=== PATIENT | male | born 1955 | race African-American/Black ===

== ENCOUNTER 2019-02-24 11:33 | Inpatient (IN) | payer OTHER ==
[2019-02-24 15:09] VITALS: BMI 31.4
--- NOTE | 2019-02-24 17:31 | HP ---
COWS - Scale Resting Pulse: 0= IN 80 or Below Sweatin= No chills or Flushing Restless Observation: 0= Sits Still Pupil Size: 0= Normal to Room Light Bone or Joint Aches: 1= Mild Discomfort Runny Nose/ Eye Tearin= None GI Upset > 30mins: 1= Stomach Cramp Tremor Observation: 0= None Yawning Observation: 0= None Anxiety or Irritability: 0= None Goose Flesh Skin: 0=Smooth Skin COWS Score: 2 CIWA Score Nausea/Vomitin-No Nausea/No Vomiting Muscle Tremors: None Anxiety: 0-No Anxiety, at Ease Agitation: 0-Normal Activity Paroxysmal Sweats: No Perspiration Orientation: 2-Disoriented Date<2 days Tacttile Disturbances: 0-None Auditory Disturbances: 0-None Visual Disturbances: 0-None Headache: 0-None Present CIWA-Ar Total Score: 2 - Admission Criteria OASAS Guidelines: Admission for Medically Managed Detox: Requires at least one of the followin. CIWA greater than 12 2. Seizures within the past 24 hours 3. Delirium tremens within the past 24 hours 4. Hallucinations within the past 24 hours 5. Acute intervention needed for co occurring medical disorder 6. Acute intervention needed for co occurring psychiatric disorder 7. Severe withdrawal that cannot be handled at a lower level of care (continued vomiting, continued diarrhea, abnormal vital signs) requiring intravenous medication and/or fluids 8. Admission ROS [facility] Allergies/Adverse Reactions: Allergies Allergy/AdvReac Type Severity Reaction Status Date / Time No Known Allergies Allergy Verified 02/24/19 14:31 History of Present Illness: pt here requesting detox from etoh use , reports 2-3 beers every other day , reports " nothing happens " if not drinking , claims heroin use 4 bags/week , cocaine daily 40-60 $ /day since age 8 , latest use yesterday , referred by parole . tobacco : 6-7 cigs/day PMHx : multiple myeloma , anxiety , bipolar d/o , htn , asthma/ copd , sad , chronic knee pain . pshx : aortic aneurysm ( 2007 [facility] ) , pneumothorax Exam Limitations: Clinical Condition - Ebola screening Have you traveled outside of the country in the last 21 days: No Have you had contact with anyone from an Ebola affected area: No Do you have a fever: No - Review of Systems Constitutional: No Symptoms Reported EENT: reports: Other (glasses) Respiratory: reports: No Symptoms reported Cardiac: reports: No Symptoms Reported GI: reports: See HPI : reports: No Symptoms Reported Musculoskeletal: reports: Joint Pain (nuvia knees and back chronic pain) Integumentary: reports: No Symptoms Reported Neuro: reports: No Symptoms reported Endocrine: reports: No Symptoms Reported Psychiatric: reports: Orientated x3, Anxious Patient History - Smoking Cessation Smoking history: Current every day smoker Have you smoked in the past 12 months: Yes Initiated information on smoking cessation: No - Substances abused Alcohol Substance route: Oral Frequency: Daily Amount used: 3-4x16oz beer Age of first use: 8 Date of last use: 02/23/19 Heroin Substance route: Inhalation Frequency: 3-6 times per week Amount used: 1 bag Age of first use: 11 Date of last use: 02/20/19 Cocaine Substance route: Inhalation Frequency: Daily Amount used: 1 gram Age of first use: 8 Date of last use: 02/23/19 Admission Physical Exam S - Vital Signs Vital Signs: Vital Signs - 24 hr 02/24/19 14:23 Temperature 96.9 F L Pulse Rate 72 Respiratory 17 Rate Blood Pressure 113/66 - Physical General Appearance: Yes: Anxious HEENTM: Yes: EOMI, Hearing grossly Normal, Normocephalic, Normal Voice Respiratory: Yes: Chest Non-Tender, Lungs Clear, Normal Breath Sounds Neck: Yes: No masses,lesions,Nodules, Trachea in good position Cardiology: Yes: Regular Rhythm, Regular Rate, S1, S2 Abdominal: Yes: Non Tender, Soft, Protuberent Back: Yes: Normal Inspection Musculoskeletal: Yes: Gait Steady Extremities: Yes: Pedal Edema (nuvia le , non- pitting , + hyperpigmentation) Neurological: Yes: Alert, Motor Strength 5/5, Normal Mood/Affect Integumentary: Yes: Warm, Rash (bile le stasisi dermatitis , hyperpigmentation) - Diagnostic (1) Alcohol use Current Visit: Yes Status: Acute (2) Cocaine use disorder Current Visit: Yes Status: Acute (3) Nicotine dependence Current Visit: Yes Status: Chronic Qualifiers: Nicotine product type: cigarettes Breathalyzer - Breathalyzer Breathalyzer: 0 Urine Drug Screen - Test Device Lot number: [id number] Expiration date: 05/07/20 - Control Is test valid?: Yes - Results Drug screen NEGATIVE: No Urine drug screen results: THELMA-Cocaine Inpatient Rehab Admission - Rehab Decision to Admit Inpatient rehab admission?: Yes - Initial Determination Are CD services needed?: Yes Free of communicable disease: Yes Not in need of hospitalization: Yes - Rehab Admission Criteria Previous failed treatment: Yes Poor recovery environment: Yes Comorbidities: Yes Lacks judgement: Yes Patient is meeting Inpatient Rehab admission criteria:: Yes
[2019-02-24] MEDS ORDERED: ALBUTEROL SO4 8 GM HFA INHALER IH PRN (17:42)
[2019-02-24] MEDS ORDERED: DICLOFENAC SODIUM TP PRN (17:42)
[2019-02-24] MEDS ORDERED: PATIENT'S OWN MEDICATION (NON-FORMULARY) (Ipratropium/Albuterol Sulfate [Combivent Respima IH PRN (17:42)
[2019-02-24] MEDS ORDERED: ALBUTEROL SO4 0.083% IH SOL 2.5 MG/3 ML VIAL.NEB. NEB PRN (17:48)
[2019-02-24] MEDS ORDERED: MAGNESIUM CITRATE 300 ML BOTTLE PO PRN (17:49)
[2019-02-24] MEDS ORDERED: hydrOXYzine PAMOATE 25 MG CAPSULE (FP) PO PRN (17:49)
[2019-02-24] MEDS ORDERED: P-EPHED 60MG/TRIPROLIDI 2.5MG TABLET PO PRN (17:49)
[2019-02-24] MEDS ORDERED: ACETAMINOPHEN 325 MG TABLET (FP) PO PRN (17:49)
[2019-02-24] MEDS ORDERED: MAGNESIUM HYDROX 2400MG/30ML ORAL SUSPENSION 30 ML CUP PO PRN (17:49)
[2019-02-24] MEDS ORDERED: NICOTINE POLACRILEX 2 MG GUM BC PRN (17:49)
[2019-02-24] MEDS ORDERED: guaiFENesin 200 MG/10 ML 10 ML UNIT-DOSE CUPS PO PRN (17:49)
[2019-02-24] MEDS ORDERED: MAG HYDROX/AL HYDROX/SIMETH 30 ML UNIT-DOSE CUP PO PRN (17:49)
[2019-02-24] MEDS ORDERED: MENTHOL/PHENOL 1 EACH UD MM PRN (17:49)
--- NOTE | 2019-02-24 20:34 | PN ---
[facility] Progress Note Note: I was asked to document the fact that the biofuels production technician scanned the wrong barcode and placed the EKG dated 02/24/19 and in the wrong chart. Please disregard this EKG as it belongs to another patient. IT notified .
[2019-02-24] MEDS: THIAMINE HCL 100 MG TABLET (FP) PO SCH (21:26)
[2019-02-24] MEDS: AMITRIPTYLINE HCL 100 MG TABLET PO SCH (21:27)
[2019-02-24] MEDS: CARVEDILOL 12.5 MG TABLET (FP) PO SCH (21:27)
[2019-02-24] MEDS: ATORVASTATIN CA 10 MG TABLET (FP) PO SCH (21:28)
[2019-02-24] MEDS: AMMONIUM LACTATE 12% LOTION 225 GM BOTTLE TP SCH (21:28)
[2019-02-24] MEDS ORDERED: MELATONIN 5 MG TABLETS PO PRN (22:00)
[2019-02-24] MEDS ORDERED: AMMONIUM LACTATE 12% CREAM 140 GM TUBE TP SCH (22:00)
[2019-02-24] MEDS ORDERED: risperiDONE 2 MG TABLET PO SCH (22:00)
--- NOTE | 2019-02-25 06:58 | CONSULT ---
[facility] Psychiatric Consult - Data Date of interview: 02/25/19 Admission source: [place] Identifying data: Mr Johnson is a 63 years old single Black male, father of a 36 years old daughter, unemployed receiving SSI, domiciled living in a rented room seeking rehab treatment for alcohol, opioid and cocaine Substance Abuse History: Reports history of alcohol, heroin and cocaine use. Refer to addiction counselor's summary for further information Medical History: Significant for bronchial asthma/COPD, hypertension, multiple myeloma, chronic knee pain and history of surgery for aortic aneurysm in 2006. Smokes cigarettes Psychiatric History: Reports that his first psychiatric contact was in 2017, two years following his release from serving 30 years in [facility] for murder. Reports that he saw a psychiatrist at [facility] and he was started on psychotropic medication. Reports that he currently sees psychiatrist at the same outpatient program and he is prescribed Risperdal 2 mg/hs and Elavil 100 mg/hs. Denies previous psychiatric hospitalization or suicidal attempt. At present, denies experiencing psychotic, manic or depressive symptoms, S/H ideations. However, reports sleeping poorly Physical/Sexual Abuse/Trauma History: Denies history of emotional, physical or sexual abuse as well as DV relationship. No service Additional Comment: Reports history of 2 previous arrests including one felony conviction on charges of murder 2nd degree for which he served 30 years in [facility] from 1985 to 2014. Reports being on life parole Mental Status Exam - Mental Status Exam Alert and Oriented to: Time, Place, Person Cognitive Function: Fair Patient Appearance: Disheveled Mood: Hopeful, Euthymic Patient Behavior: Cooperative Speech Pattern: Clear Voice Loudness: Normal Thought Process: Intact, Goal Oriented Thought Disorder: Not Present Hallucinations: Denies Suicidal Ideation: Denies Homicidal Ideation: Denies Insight/Judgement: Fair Sleep: Poorly Appetite: Good Muscle strength/Tone: Normal Gait/Station: Normal Psychiatric Findings - Problem List ([place] 1, 2,3) (1) Schizoaffective disorder Current Visit: Yes Status: Chronic (2) Alcohol dependence Current Visit: Yes Status: Acute (3) Opioid dependence Current Visit: Yes Status: Acute (4) Cocaine dependence Current Visit: Yes Status: Acute (5) Cocaine dependence Current Visit: Yes Status: Acute (6) Nicotine dependence Current Visit: Yes Status: Chronic (7) COPD (chronic obstructive pulmonary disease) Current Visit: Yes Status: Chronic (8) Asthma Current Visit: Yes Status: Chronic (9) HTN (hypertension) Current Visit: Yes Status: Chronic (10) Multiple myeloma Current Visit: Yes Status: Chronic - Initial Treatment Plan Initial Treatment Plan: 1) Continue Risperdal 2 mg po HS and Elavil 100 mg po HS. 2) Continue inpatient rehabilitation
[2019-02-25] MEDS: GABAPENTIN 300 MG CAPSULE (FP) PO SCH (09:56)
[2019-02-25] MEDS: amLODIPine BESYLATE 5 MG TABLET (FP) PO SCH (09:56)
[2019-02-25] MEDS: CARVEDILOL 12.5 MG TABLET (FP) PO SCH ×2 (09:56→21:52)
[2019-02-25] MEDS: PANTOPRAZOLE 20 MG TABLET (FP) PO SCH (09:56)
[2019-02-25] MEDS: ACYCLOVIR 400 MG TABLET PO SCH (09:56)
[2019-02-25] MEDS: HYDROCHLOROTHIAZIDE 12.5 MG CAPSULE (FP) PO SCH (09:56)
[2019-02-25] MEDS: PRENATAL VITAMINS W/ FOLIC ACID TABLET (FP) PO SCH (09:56)
[2019-02-25] MEDS: ASPIRIN COATED 81 MG TABLET.EC PO SCH (09:56)
[2019-02-25] MEDS: AMMONIUM LACTATE 12% LOTION 225 GM BOTTLE TP SCH ×2 (09:58→21:53)
[2019-02-25] MEDS ORDERED: ENTECAVIR PO SCH (10:00)
[2019-02-25 11:37] LABS: HEMATOCRIT 44.9 % (35.4-49); HEMOGLOBIN 14.4 GM/dL (11.7-16.9); MCH 30.6 pg (25.7-33.7); MEAN CELL VOLUME 95.5 fl (80-96); MEAN PLT VOLUME 9.7 fl (7.5-11.1); PLATELET COUNT 132 K/MM3 (134-434); RDW 14.3 % (11.9-15.9); WHITE BLOOD COUNT 5.2 K/mm3 (4.0-10.0)
[2019-02-25] MEDS ORDERED: PT OWN MED DRAWER 7, Y5N ONE ×2 (11:52→14:45)
[2019-02-25 12:07] LABS: ALBUMIN 3.8 g/dl (3.4-5.0); BILIRUBIN,TOTAL 0.9 mg/dL (0.2-1); CALCIUM 8.6 mg/dL (8.5-10.1); CREATININE 0.9 mg/dL (0.55-1.3); POTASSIUM 4.9 mmol/L (3.5-5.1); TOT PROT 6.6 g/dl (6.4-8.2)
[2019-02-25 16:11] LABS: EPI CELLS 0.5 /HPF (0-5/HPF); HYALINE CASTS 1 /lpf (0-8); PH,URINE 5.5 (5.0-8.0); URINE APPEARANCE CLEAR; URINE BACTERIA 0.3 /hpf (NEGATIVE); URINE BILIRUBIN NEGATIVE (NEGATIVE); URINE COLOR YELLOW; URINE GLUCOSE (UA) NEGATIVE (NEGATIVE); URINE KETONE NEGATIVE (NEGATIVE); URINE LEUK ESTERASE TRACE (NEGATIVE); URINE NITRITE NEGATIVE (NEGATIVE); URINE PROTEIN NEGATIVE (NEGATIVE); URINE RBC 1 /hpf (0-4); URINE WBC 2 /hpf (0-5)
[2019-02-25] MEDS: risperiDONE 2 MG TABLET PO SCH (21:52)
[2019-02-25] MEDS: ATORVASTATIN CA 10 MG TABLET (FP) PO SCH (21:52)
[2019-02-25] MEDS: AMITRIPTYLINE HCL 100 MG TABLET PO SCH (21:52)
[2019-02-25] MEDS: THIAMINE HCL 100 MG TABLET (FP) PO SCH (21:52)
[2019-02-26] MEDS: HYDROCHLOROTHIAZIDE 12.5 MG CAPSULE (FP) PO SCH (10:00)
[2019-02-26] MEDS: PANTOPRAZOLE 20 MG TABLET (FP) PO SCH (10:00)
[2019-02-26] MEDS: PRENATAL VITAMINS W/ FOLIC ACID TABLET (FP) PO SCH (10:00)
[2019-02-26] MEDS: ACYCLOVIR 400 MG TABLET PO SCH (10:00)
[2019-02-26] MEDS: GABAPENTIN 300 MG CAPSULE (FP) PO SCH (10:00)
[2019-02-26] MEDS: AMMONIUM LACTATE 12% LOTION 225 GM BOTTLE TP SCH ×2 (10:00→21:44)
[2019-02-26] MEDS: ASPIRIN COATED 81 MG TABLET.EC PO SCH (10:00)
[2019-02-26] MEDS: CARVEDILOL 12.5 MG TABLET (FP) PO SCH ×2 (10:00→21:42)
[2019-02-26] MEDS: amLODIPine BESYLATE 5 MG TABLET (FP) PO SCH (10:00)
[2019-02-26] MEDS ORDERED: PT OWN MED DRAWER 7, Y5N ONE (19:49)
[2019-02-26] MEDS: risperiDONE 2 MG TABLET PO SCH (21:42)
[2019-02-26] MEDS: ATORVASTATIN CA 10 MG TABLET (FP) PO SCH (21:42)
[2019-02-26] MEDS: AMITRIPTYLINE HCL 100 MG TABLET PO SCH (21:42)
[2019-02-26] MEDS: THIAMINE HCL 100 MG TABLET (FP) PO SCH (21:42)
[2019-02-26] MEDS: MELATONIN 5 MG TABLETS PO PRN (21:43)
[2019-02-27] MEDS: ASPIRIN COATED 81 MG TABLET.EC PO SCH (09:57)
[2019-02-27] MEDS: PRENATAL VITAMINS W/ FOLIC ACID TABLET (FP) PO SCH (09:57)
[2019-02-27] MEDS: PANTOPRAZOLE 20 MG TABLET (FP) PO SCH (09:57)
[2019-02-27] MEDS: CARVEDILOL 12.5 MG TABLET (FP) PO SCH ×2 (09:57→21:21)
[2019-02-27] MEDS: HYDROCHLOROTHIAZIDE 12.5 MG CAPSULE (FP) PO SCH (09:57)
[2019-02-27] MEDS: amLODIPine BESYLATE 5 MG TABLET (FP) PO SCH (09:58)
[2019-02-27] MEDS: AMMONIUM LACTATE 12% LOTION 225 GM BOTTLE TP SCH ×2 (09:58→21:22)
[2019-02-27] MEDS: GABAPENTIN 300 MG CAPSULE (FP) PO SCH (09:58)
[2019-02-27] MEDS: ACYCLOVIR 400 MG TABLET PO SCH (09:58)
[2019-02-27] MEDS: AMITRIPTYLINE HCL 100 MG TABLET PO SCH (21:21)
[2019-02-27] MEDS: risperiDONE 2 MG TABLET PO SCH (21:21)
[2019-02-27] MEDS: THIAMINE HCL 100 MG TABLET (FP) PO SCH (21:21)
[2019-02-27] MEDS: ATORVASTATIN CA 10 MG TABLET (FP) PO SCH (21:21)
[2019-02-27] MEDS: MELATONIN 5 MG TABLETS PO PRN (21:21)
[2019-02-28] MEDS: HYDROCHLOROTHIAZIDE 12.5 MG CAPSULE (FP) PO SCH (09:50)
[2019-02-28] MEDS: CARVEDILOL 12.5 MG TABLET (FP) PO SCH ×2 (09:50→21:42)
[2019-02-28] MEDS: ACYCLOVIR 400 MG TABLET PO SCH (09:50)
[2019-02-28] MEDS: ASPIRIN COATED 81 MG TABLET.EC PO SCH (09:50)
[2019-02-28] MEDS: PANTOPRAZOLE 20 MG TABLET (FP) PO SCH (09:50)
[2019-02-28] MEDS: amLODIPine BESYLATE 5 MG TABLET (FP) PO SCH (09:50)
[2019-02-28] MEDS: AMMONIUM LACTATE 12% LOTION 225 GM BOTTLE TP SCH ×2 (09:50→21:43)
[2019-02-28] MEDS: PRENATAL VITAMINS W/ FOLIC ACID TABLET (FP) PO SCH (09:50)
[2019-02-28] MEDS: GABAPENTIN 300 MG CAPSULE (FP) PO SCH (09:50)
[2019-02-28] MEDS ORDERED: PT OWN MED DRAWER 7, Y5N ONE (13:03)
--- NOTE | 2019-02-28 13:32 | PN ---
S Progress Note Note: PATIENT STATES HE IS NO LONGER BEING PRESCRIBED BARACLUDE BY ONCOLOGIST. MEDICATION WAS INITIALLY ORDERED UPON ADMISSION BUT D/C BY PROVIDER.
[2019-02-28] MEDS: CYCLOBENZAPRINE HCL 5 MG TABLET PO SCH ×2 (14:14→21:42)
[2019-02-28] MEDS: THIAMINE HCL 100 MG TABLET (FP) PO SCH (21:42)
[2019-02-28] MEDS: risperiDONE 2 MG TABLET PO SCH (21:42)
[2019-02-28] MEDS: AMITRIPTYLINE HCL 100 MG TABLET PO SCH (21:42)
[2019-02-28] MEDS: MELATONIN 5 MG TABLETS PO PRN (21:42)
[2019-02-28] MEDS: ATORVASTATIN CA 10 MG TABLET (FP) PO SCH (21:42)
[2019-03-01] MEDS: CYCLOBENZAPRINE HCL 5 MG TABLET PO SCH ×3 (06:05→21:10)
[2019-03-01] MEDS ORDERED: ALBUTEROL SO4 0.083% IH SOL 2.5 MG/3 ML VIAL.NEB. NEB PRN (06:59)
[2019-03-01] MEDS: HYDROCHLOROTHIAZIDE 12.5 MG CAPSULE (FP) PO SCH (10:01)
[2019-03-01] MEDS: GABAPENTIN 300 MG CAPSULE (FP) PO SCH (10:01)
[2019-03-01] MEDS: ACYCLOVIR 400 MG TABLET PO SCH (10:01)
[2019-03-01] MEDS: CARVEDILOL 12.5 MG TABLET (FP) PO SCH ×2 (10:01→21:10)
[2019-03-01] MEDS: PRENATAL VITAMINS W/ FOLIC ACID TABLET (FP) PO SCH (10:02)
[2019-03-01] MEDS: ASPIRIN COATED 81 MG TABLET.EC PO SCH (10:02)
[2019-03-01] MEDS: amLODIPine BESYLATE 5 MG TABLET (FP) PO SCH (10:02)
[2019-03-01] MEDS: PANTOPRAZOLE 20 MG TABLET (FP) PO SCH (10:02)
[2019-03-01] MEDS: AMMONIUM LACTATE 12% LOTION 225 GM BOTTLE TP SCH ×2 (10:04→21:12)
[2019-03-01] MEDS ORDERED: PT OWN MED DRAWER 7, Y5N ONE ×2 (10:05→19:21)
[2019-03-01] MEDS: AMITRIPTYLINE HCL 100 MG TABLET PO SCH (21:10)
[2019-03-01] MEDS: ATORVASTATIN CA 10 MG TABLET (FP) PO SCH (21:10)
[2019-03-01] MEDS: THIAMINE HCL 100 MG TABLET (FP) PO SCH (21:10)
[2019-03-01] MEDS: risperiDONE 2 MG TABLET PO SCH (21:10)
[2019-03-02] MEDS: CYCLOBENZAPRINE HCL 5 MG TABLET PO SCH ×3 (06:06→21:45)
[2019-03-02] MEDS ORDERED: PT OWN MED DRAWER 7, Y5N ONE ×2 (09:01→19:05)
[2019-03-02] MEDS: PANTOPRAZOLE 20 MG TABLET (FP) PO SCH (09:43)
[2019-03-02] MEDS: ACYCLOVIR 400 MG TABLET PO SCH (09:43)
[2019-03-02] MEDS: amLODIPine BESYLATE 5 MG TABLET (FP) PO SCH (09:43)
[2019-03-02] MEDS: ASPIRIN COATED 81 MG TABLET.EC PO SCH (09:43)
[2019-03-02] MEDS: HYDROCHLOROTHIAZIDE 12.5 MG CAPSULE (FP) PO SCH (09:43)
[2019-03-02] MEDS: CARVEDILOL 12.5 MG TABLET (FP) PO SCH ×2 (09:43→21:45)
[2019-03-02] MEDS: PRENATAL VITAMINS W/ FOLIC ACID TABLET (FP) PO SCH (09:43)
[2019-03-02] MEDS: GABAPENTIN 300 MG CAPSULE (FP) PO SCH (09:43)
[2019-03-02] MEDS: PATIENT'S OWN MEDICATION (NON-FORMULARY) (Ipratropium/Albuterol Sulfate [Combivent Respima IH PRN (09:44)
[2019-03-02] MEDS: AMMONIUM LACTATE 12% LOTION 225 GM BOTTLE TP SCH ×2 (09:45→21:46)
[2019-03-02] MEDS: risperiDONE 2 MG TABLET PO SCH (21:45)
[2019-03-02] MEDS: ATORVASTATIN CA 10 MG TABLET (FP) PO SCH (21:45)
[2019-03-02] MEDS: THIAMINE HCL 100 MG TABLET (FP) PO SCH (21:46)
[2019-03-02] MEDS: AMITRIPTYLINE HCL 100 MG TABLET PO SCH (21:46)
[2019-03-02] MEDS: KETOROLAC TROMETHAMINE 10 MG TABLET PO PRN (21:48)
[2019-03-03] MEDS: CYCLOBENZAPRINE HCL 5 MG TABLET PO SCH ×3 (06:08→21:36)
[2019-03-03] MEDS ORDERED: PT OWN MED DRAWER 7, Y5N ONE ×3 (06:14→10:39)
[2019-03-03] MEDS ORDERED: DEXAMETHASONE 4 MG TABLET (FP) PO SCH (08:00)
[2019-03-03] MEDS: PRENATAL VITAMINS W/ FOLIC ACID TABLET (FP) PO SCH (09:53)
[2019-03-03] MEDS: GABAPENTIN 300 MG CAPSULE (FP) PO SCH (09:53)
[2019-03-03] MEDS: PANTOPRAZOLE 20 MG TABLET (FP) PO SCH (09:54)
[2019-03-03] MEDS: amLODIPine BESYLATE 5 MG TABLET (FP) PO SCH (09:54)
[2019-03-03] MEDS: HYDROCHLOROTHIAZIDE 12.5 MG CAPSULE (FP) PO SCH (09:54)
[2019-03-03] MEDS: ACYCLOVIR 400 MG TABLET PO SCH (09:54)
[2019-03-03] MEDS: ASPIRIN COATED 81 MG TABLET.EC PO SCH (09:54)
[2019-03-03] MEDS: CARVEDILOL 12.5 MG TABLET (FP) PO SCH ×2 (09:54→21:35)
[2019-03-03] MEDS: PATIENT'S OWN MEDICATION (NON-FORMULARY) (Ipratropium/Albuterol Sulfate [Combivent Respima IH PRN (09:58)
[2019-03-03] MEDS: AMMONIUM LACTATE 12% LOTION 225 GM BOTTLE TP SCH ×2 (09:59→21:36)
[2019-03-03] MEDS ORDERED: IXAZOMIB CITRATE 4 MG PO SCH (10:00)
[2019-03-03] MEDS: THIAMINE HCL 100 MG TABLET (FP) PO SCH (21:35)
[2019-03-03] MEDS: ATORVASTATIN CA 10 MG TABLET (FP) PO SCH (21:36)
[2019-03-03] MEDS: risperiDONE 2 MG TABLET PO SCH (21:36)
[2019-03-03] MEDS: AMITRIPTYLINE HCL 100 MG TABLET PO SCH (21:36)
[2019-03-03] MEDS: KETOROLAC TROMETHAMINE 10 MG TABLET PO PRN (21:36)
[2019-03-04] MEDS: CYCLOBENZAPRINE HCL 5 MG TABLET PO SCH ×3 (06:09→21:11)
[2019-03-04] MEDS: PANTOPRAZOLE 20 MG TABLET (FP) PO SCH (09:49)
[2019-03-04] MEDS: HYDROCHLOROTHIAZIDE 12.5 MG CAPSULE (FP) PO SCH (09:49)
[2019-03-04] MEDS: GABAPENTIN 300 MG CAPSULE (FP) PO SCH (09:49)
[2019-03-04] MEDS: ASPIRIN COATED 81 MG TABLET.EC PO SCH (09:50)
[2019-03-04] MEDS: ACYCLOVIR 400 MG TABLET PO SCH (09:50)
[2019-03-04] MEDS: amLODIPine BESYLATE 5 MG TABLET (FP) PO SCH (09:50)
[2019-03-04] MEDS: PRENATAL VITAMINS W/ FOLIC ACID TABLET (FP) PO SCH (09:50)
[2019-03-04] MEDS: CARVEDILOL 12.5 MG TABLET (FP) PO SCH ×2 (09:50→21:11)
[2019-03-04] MEDS: KETOROLAC TROMETHAMINE 10 MG TABLET PO PRN ×2 (09:51→21:13)
[2019-03-04] MEDS: AMMONIUM LACTATE 12% LOTION 225 GM BOTTLE TP SCH ×2 (09:52→21:13)
[2019-03-04] MEDS: ATORVASTATIN CA 10 MG TABLET (FP) PO SCH (21:11)
[2019-03-04] MEDS: AMITRIPTYLINE HCL 100 MG TABLET PO SCH (21:11)
[2019-03-04] MEDS: risperiDONE 2 MG TABLET PO SCH (21:11)
[2019-03-04] MEDS: THIAMINE HCL 100 MG TABLET (FP) PO SCH (21:11)
[2019-03-05] MEDS: CYCLOBENZAPRINE HCL 5 MG TABLET PO SCH ×3 (06:27→21:56)
[2019-03-05] MEDS: GABAPENTIN 300 MG CAPSULE (FP) PO SCH (09:35)
[2019-03-05] MEDS: CARVEDILOL 12.5 MG TABLET (FP) PO SCH ×2 (09:35→21:56)
[2019-03-05] MEDS: ASPIRIN COATED 81 MG TABLET.EC PO SCH (09:35)
[2019-03-05] MEDS: ACYCLOVIR 400 MG TABLET PO SCH (09:35)
[2019-03-05] MEDS: AMMONIUM LACTATE 12% LOTION 225 GM BOTTLE TP SCH ×2 (09:35→22:25)
[2019-03-05] MEDS: HYDROCHLOROTHIAZIDE 12.5 MG CAPSULE (FP) PO SCH (09:35)
[2019-03-05] MEDS: amLODIPine BESYLATE 5 MG TABLET (FP) PO SCH (09:35)
[2019-03-05] MEDS: PANTOPRAZOLE 20 MG TABLET (FP) PO SCH (09:35)
[2019-03-05] MEDS: PRENATAL VITAMINS W/ FOLIC ACID TABLET (FP) PO SCH (09:35)
[2019-03-05] MEDS: KETOROLAC TROMETHAMINE 10 MG TABLET PO PRN ×2 (09:36→21:59)
[2019-03-05] MEDS ORDERED: PT OWN MED DRAWER 7, Y5N ONE ×4 (19:44→22:32)
[2019-03-05] MEDS: risperiDONE 2 MG TABLET PO SCH (21:56)
[2019-03-05] MEDS: ATORVASTATIN CA 10 MG TABLET (FP) PO SCH (21:56)
[2019-03-05] MEDS: THIAMINE HCL 100 MG TABLET (FP) PO SCH (21:56)
[2019-03-05] MEDS: AMITRIPTYLINE HCL 100 MG TABLET PO SCH (21:56)
[2019-03-05] MEDS: MELATONIN 5 MG TABLETS PO PRN (22:26)
[2019-03-06] MEDS: CYCLOBENZAPRINE HCL 5 MG TABLET PO SCH ×3 (06:34→21:14)
[2019-03-06] MEDS ORDERED: PT OWN MED DRAWER 7, Y5N ONE ×2 (09:48→10:33)
[2019-03-06] MEDS: PRENATAL VITAMINS W/ FOLIC ACID TABLET (FP) PO SCH (10:30)
[2019-03-06] MEDS: CARVEDILOL 12.5 MG TABLET (FP) PO SCH ×2 (10:30→21:14)
[2019-03-06] MEDS: ACYCLOVIR 400 MG TABLET PO SCH (10:30)
[2019-03-06] MEDS: HYDROCHLOROTHIAZIDE 12.5 MG CAPSULE (FP) PO SCH (10:31)
[2019-03-06] MEDS: AMMONIUM LACTATE 12% LOTION 225 GM BOTTLE TP SCH ×2 (10:31→21:14)
[2019-03-06] MEDS: GABAPENTIN 300 MG CAPSULE (FP) PO SCH (10:31)
[2019-03-06] MEDS: amLODIPine BESYLATE 5 MG TABLET (FP) PO SCH (10:31)
[2019-03-06] MEDS: PANTOPRAZOLE 20 MG TABLET (FP) PO SCH (10:31)
[2019-03-06] MEDS: KETOROLAC TROMETHAMINE 10 MG TABLET PO PRN (10:33)
[2019-03-06] MEDS: ASPIRIN COATED 81 MG TABLET.EC PO SCH (12:59)
[2019-03-06] MEDS: THIAMINE HCL 100 MG TABLET (FP) PO SCH (21:14)
[2019-03-06] MEDS: risperiDONE 2 MG TABLET PO SCH (21:14)
[2019-03-06] MEDS: AMITRIPTYLINE HCL 100 MG TABLET PO SCH (21:14)
[2019-03-06] MEDS: ATORVASTATIN CA 10 MG TABLET (FP) PO SCH (21:14)
[2019-03-06] MEDS: MELATONIN 5 MG TABLETS PO PRN (21:16)
[2019-03-07] MEDS: CYCLOBENZAPRINE HCL 5 MG TABLET PO SCH ×3 (05:58→21:51)
[2019-03-07] MEDS: AMMONIUM LACTATE 12% LOTION 225 GM BOTTLE TP SCH ×2 (09:58→21:53)
[2019-03-07] MEDS: GABAPENTIN 300 MG CAPSULE (FP) PO SCH (09:58)
[2019-03-07] MEDS: PANTOPRAZOLE 20 MG TABLET (FP) PO SCH (09:58)
[2019-03-07] MEDS: HYDROCHLOROTHIAZIDE 12.5 MG CAPSULE (FP) PO SCH (09:58)
[2019-03-07] MEDS: PRENATAL VITAMINS W/ FOLIC ACID TABLET (FP) PO SCH (09:58)
[2019-03-07] MEDS: amLODIPine BESYLATE 5 MG TABLET (FP) PO SCH (09:58)
[2019-03-07] MEDS: ACYCLOVIR 400 MG TABLET PO SCH (09:58)
[2019-03-07] MEDS: KETOROLAC TROMETHAMINE 10 MG TABLET PO PRN (10:02)
[2019-03-07] MEDS: CARVEDILOL 12.5 MG TABLET (FP) PO SCH ×2 (10:02→21:51)
[2019-03-07] MEDS ORDERED: PT OWN MED DRAWER 7, Y5N ONE (10:03)
[2019-03-07] MEDS: ASPIRIN COATED 81 MG TABLET.EC PO SCH (10:21)
[2019-03-07] MEDS: THIAMINE HCL 100 MG TABLET (FP) PO SCH (21:51)
[2019-03-07] MEDS: risperiDONE 2 MG TABLET PO SCH (21:51)
[2019-03-07] MEDS: ATORVASTATIN CA 10 MG TABLET (FP) PO SCH (21:51)
[2019-03-07] MEDS: AMITRIPTYLINE HCL 100 MG TABLET PO SCH (21:51)
[2019-03-07] MEDS: MELATONIN 5 MG TABLETS PO PRN (21:51)
[2019-03-08] MEDS: CYCLOBENZAPRINE HCL 5 MG TABLET PO SCH ×3 (06:14→21:09)
[2019-03-08] MEDS: amLODIPine BESYLATE 5 MG TABLET (FP) PO SCH (09:34)
[2019-03-08] MEDS: CARVEDILOL 12.5 MG TABLET (FP) PO SCH ×2 (09:34→21:09)
[2019-03-08] MEDS: GABAPENTIN 300 MG CAPSULE (FP) PO SCH (09:34)
[2019-03-08] MEDS: PANTOPRAZOLE 20 MG TABLET (FP) PO SCH (09:34)
[2019-03-08] MEDS: ACYCLOVIR 400 MG TABLET PO SCH (09:34)
[2019-03-08] MEDS: PRENATAL VITAMINS W/ FOLIC ACID TABLET (FP) PO SCH (09:34)
[2019-03-08] MEDS: HYDROCHLOROTHIAZIDE 12.5 MG CAPSULE (FP) PO SCH (09:34)
[2019-03-08] MEDS: ASPIRIN COATED 81 MG TABLET.EC PO SCH (09:34)
[2019-03-08] MEDS: AMMONIUM LACTATE 12% LOTION 225 GM BOTTLE TP SCH ×2 (09:36→21:11)
--- NOTE | 2019-03-08 09:49 | PN ---
S Progress Note (SOAP) Subjective: To be discharged tomorrow Objective: A=O x3, No neurological deficits noted. Heart sounds regular, Lungs clear, abd soft, non-tender, non-distended, skin clear, 03/08/19 09:46 CBC, BMP 02/25/19 09:20 02/25/19 09:20 Vital Signs (72 hours) 03/05/19 03/06/19 03/06/19 20:24 00:30 03:30 Temperature Pulse Rate 83 Respiratory 18 20 20 Rate Blood Pressure 132/78 03/06/19 03/06/19 03/06/19 06:59 10:39 12:18 Temperature 98.3 F 98.8 F 98.8 F Pulse Rate 78 84 84 Respiratory 18 20 20 Rate Blood Pressure 137/86 115/71 115/71 03/06/19 03/07/19 03/07/19 22:00 03:30 06:59 Temperature 97.7 F Pulse Rate 83 79 Respiratory 18 18 18 Rate Blood Pressure 125/75 149/91 03/07/19 03/07/19 03/08/19 12:39 22:53 00:30 Temperature 97.9 F 86 F L Pulse Rate 82 Respiratory 19 20 Rate Blood Pressure 127/71 132/71 03/08/19 03/08/19 03:30 06:45 Temperature 98 F Pulse Rate 82 Respiratory 18 18 Rate Blood Pressure 149/97 Assessment: Medically stable for discharge Discharge Dx: ETOH dependence Cocaine Dependence DOPD HTN 03/08/19 09:47 Plan: Discharge Plan: Will go to [facility] for aftercare. Receives medical and psychiatric care at [facility]; has an appointment with medical provider on 03/18. Reports that he has enough medications until his medical visit; no prescriptions transmitted to pharmacy.
--- NOTE | 2019-03-08 14:50 | PN ---
[facility] Progress Note Note: Patient is scheduled for discharge tomorrow. Script for 30 days supply of medications(Risperdal 2 mg/hs, Elavil 100 mg/hs) will be electronically transmitted to [facility] at [address] [place], [place] [id number]
[2019-03-08] MEDS: AMITRIPTYLINE HCL 100 MG TABLET PO SCH (21:09)
[2019-03-08] MEDS: ATORVASTATIN CA 10 MG TABLET (FP) PO SCH (21:09)
[2019-03-08] MEDS: THIAMINE HCL 100 MG TABLET (FP) PO SCH (21:09)
[2019-03-08] MEDS: risperiDONE 2 MG TABLET PO SCH (21:09)
[2019-03-08] MEDS: MELATONIN 5 MG TABLETS PO PRN (21:10)
[2019-03-09] MEDS: CYCLOBENZAPRINE HCL 5 MG TABLET PO SCH (06:43)
[2019-03-09 07:13] VITALS: BP 148/82; PULSE 87; TEMP 98
[2019-03-09] MEDS ORDERED: PT OWN MED DRAWER 7, Y5N ONE ×2 (08:35→08:36)
== END 2019-03-09 09:17 | disposition home or self-care (01) | DRG 895 ==
LOC: YASAS 11:33 → Y3W 17:47
PROVIDERS: ADMIT Neuromusculoskeletal Medicine & OMM; ATTEND Neuromusculoskeletal Medicine & OMM
PROC: HZ42ZZZ Group Counseling for Substance Abuse Treatment, Cognitive-Behavioral (ICD-10-PCS; principal; 2019-02-24)
DX: F10.20 Alcohol dependence, uncomplicated (principal); F11.20 Opioid dependence, uncomplicated; F14.20 Cocaine dependence, uncomplicated; C90.00 Multiple myeloma not having achieved remission; F17.210 Nicotine dependence, cigarettes, uncomplicated; F25.9 Schizoaffective disorder, unspecified; I10 Essential (primary) hypertension; J44.9 Chronic obstructive pulmonary disease, unspecified; M25.562 Pain in left knee; M54.5 Low back pain; G89.29 Other chronic pain
CPT/HCPCS: 36415; 80053; 81003; 85027; 86593

== ENCOUNTER 2019-04-18 08:52 | Inpatient (IN) | payer OTHER ==
--- NOTE | 2019-04-18 11:13 | HP ---
CIWA Score Nausea/Vomitin-No Nausea/No Vomiting Muscle Tremors: 1-None Visible, but [place] Anxiety: 1-Mildly Anxious Agitation: 0-Normal Activity Paroxysmal Sweats: No Perspiration Orientation: 0-Oriented Tacttile Disturbances: 0-None Auditory Disturbances: 0-None Visual Disturbances: 1-Very Mild Sensitivity Headache: 0-None Present (patient is appropriate for admission to rehab) CIWA-Ar Total Score: 3 - Admission Criteria OASAS Guidelines: Admission for Medically Managed Detox: Requires at least one of the followin. CIWA greater than 12 2. Seizures within the past 24 hours 3. Delirium tremens within the past 24 hours 4. Hallucinations within the past 24 hours 5. Acute intervention needed for co occurring medical disorder 6. Acute intervention needed for co occurring psychiatric disorder 7. Severe withdrawal that cannot be handled at a lower level of care (continued vomiting, continued diarrhea, abnormal vital signs) requiring intravenous medication and/or fluids 8. Admission ROS [facility] Chief Complaint: "I'm here for rehab and was sent by my chief informatics officer." Allergies/Adverse Reactions: Allergies Allergy/AdvReac Type Severity Reaction Status Date / Time No Known Allergies Allergy Verified 04/18/19 10:36 History of Present Illness: Patient is a 63 year old black male who has some cocaine use and opioid dependence and alcohol dependence. Patient is using 1/4 of gram of cocaine every other day. He started using since age 8. Patient is using 2-3 bags of heroin per week. He started using since age 8 Patient is drinking 2-beers every other day and sometimes more frequently. He started using since age 8. Patient smokes 4-5 ciggs per day for 2016 till not and had ceased before. Patient never had seizures or blackouts. PMHx: Aortix Aneurysm in 2011 with surgical intervention. Multiple myeloma and is getting treated for that with medications. COPD, Hypercholesterolemia and HTN as well. PSurg Hx: See above PSych Hx: Depression and Schizophrenia Patient has no legal issues. Patient has support systems in [facility] outpatient program. He gets primary care there as well. He has family support systems in place. - Ebola screening Have you traveled outside of the country in the last 21 days: No Have you had contact with anyone from an Ebola affected area: No Have you been sick,other than usual withdrawal symptoms: No Do you have a fever: No - Review of Systems Constitutional: No Symptoms Reported EENT: reports: No Symptoms Reported Respiratory: reports: No Symptoms reported Cardiac: reports: No Symptoms Reported, Lightheadedness GI: reports: No Symptoms Reported : reports: No Symptoms Reported Musculoskeletal: reports: No Symptoms Reported Integumentary: reports: No Symptoms Reported Neuro: reports: No Symptoms reported Endocrine: reports: No Symptoms Reported Hematology: reports: No Symptoms Reported Psychiatric: reports: No Sypmtoms Reported Other Systems: Reviewed and Negative Patient History - Patient Medical History Hx Asthma: Yes Hx Chronic Obstructive Pulmonary Disease (COPD): Yes Hx Cardiac Disorders: No Hx Hypertension: Yes Hx Hypercholesterolemia: Yes Hx Pacemaker: No HX Cerebrovascular Accident: No Hx Seizures: No Hx Diabetes: No Hx Gastrointestinal Disorders: No Hx Genitourinary Disorders: No Hx Sexually Transmitted Disorders: No Hx Renal Disease (ESRD): No Hx Depression: Yes (Bipolar) Hx Suicide Attempt: No Hx Schizophrenia: Yes - Patient Surgical History Past Surgical History: Yes Hx Neurologic Surgery: Yes (Aneurysm) Hx Cataract Extraction: No Hx Cardiac Surgery: No Hx Lung Surgery: No Hx Breast Surgery: No Hx Breast Biopsy: No Hx Abdominal Surgery: No Hx Appendectomy: No Hx Cholecystectomy: No Hx Genitourinary Surgery: No Hx Section: No Hx Orthopedic Surgery: No - PPD History Previous Implant?: Yes Documented Results: Negative w/proof Implanted On Prior [facility] Admission?: Yes Date: 02/26/19 Results: negative PPD to be Administered?: No - Reproductive History Patient is a Female of Child Bearing Age (11 -55 yrs old): No - Smoking Cessation Smoking history: Current every day smoker Have you smoked in the past 12 months: Yes Aproximately how many cigarettes per day: 4 Hx Chewing Tobacco Use: No Initiated information on smoking cessation: Yes 'Breaking Loose' booklet given: 04/18/19 - Substance & Tx. History Hx Alcohol Use: Yes (see history sporadic use) Hx Substance Use: Yes Substance Use Type: Alcohol, Cocaine, Marijuana Hx Substance Use Treatment: Yes ([facility] for detox and rehab.) - Substances abused Alcohol Substance route: Oral Frequency: 1-2 times per week Amount used: 3-4x16oz beer Age of first use: 8 Date of last use: 02/23/19 Heroin Substance route: Inhalation Frequency: 3-6 times per week Amount used: 1-2 bags Age of first use: 11 Date of last use: 04/14/19 Cocaine Substance route: Inhalation Frequency: Daily Amount used: 1 gram Age of first use: 8 Date of last use: 04/17/19 Family Disease History - Family Disease History Family History: Unremarkable Family Disease History: Other: Father ( unknown cause), Mother ( unknown cause), Brother (2 brothers, unknown medical problems), Sister (3 sisters, 1 by MVA), Daughter (2 daughters, 1 daughter from over dose of opiate.) Admission Physical Exam [facility] - Vital Signs Vital Signs: Vital Signs - 24 hr 04/18/19 10:45 Temperature 97.6 F Pulse Rate 66 Respiratory 16 Rate Blood Pressure 103/68 - Physical General Appearance: Yes: No Apparent Distress HEENTM: Yes: EOMI, Normal ENT Inspection, Normocephalic, EHSAN, Pharynx Normal Respiratory: Yes: Chest Non-Tender, Lungs Clear, Normal Breath Sounds, No Respiratory Distress, No Accessory Muscle Use Neck: Yes: No masses,lesions,Nodules, Supple, Trachea in good position Breast: Yes: Within Normal Limits Cardiology: Yes: Regular Rhythm, Regular Rate, S1, S2 Abdominal: Yes: Normal Bowel Sounds, Protuberent, Surgical Scar Genitourinary: Yes: Within Normal Limits Back: Yes: Within Normal Limits, Normal Inspection Musculoskeletal: Yes: full range of Motion, Gait Steady Extremities: Yes: Normal Capillary Refill, Normal Inspection, Normal Range of Motion, Non-Tender Neurological: Yes: atm mechanic II-XII NML intact, Fully Oriented, Alert, Motor Strength 5/5, Normal Mood/Affect Integumentary: Yes: Normal Color, Warm Lymphatic: Yes: Within Normal Limits - Diagnostic (1) Alcohol dependence Current Visit: Yes Status: Acute (2) Cocaine dependence Current Visit: Yes Status: Acute (3) Opioid dependence Current Visit: Yes Status: Acute (4) COPD (chronic obstructive pulmonary disease) Current Visit: Yes Status: Chronic (5) HTN (hypertension) Current Visit: Yes Status: Chronic (6) Multiple myeloma Current Visit: Yes Status: Chronic (7) Nicotine dependence Current Visit: Yes Status: Chronic Qualifiers: Nicotine product type: cigarettes Cleared for Admission [facility] - Detox or Rehab [facility] Level of Care: Medically Managed Claeared for Rehab Admission: Yes Screened but not Admitted - Documentation of Visit Screened but not Admitted: No Breathalyzer - Breathalyzer Breathalyzer: 0 (last drank last night) Vital Signs - Vital Signs Vital signs refused: No Temperature: 97.6 F Temperature source: Oral Pulse Rate: 66 Respiratory Rate: 16 Blood Pressure: 103/68 BP Location: Left Arm (103/68) Blood Pressure position: Sitting - Height Height: 6 ft - Weight Weight: 237 lb Weight measurement method: Standing scale - BMI Body Mass Index (BMI): 32.1 - Bowel Function Bowel Movement: No Urine Drug Screen - Test Device Lot number: [id number] Expiration date: 05/07/20 - Control Is test valid?: Yes - Results Drug screen NEGATIVE: No Urine drug screen results: THELMA-Cocaine Inpatient Rehab Admission - Rehab Decision to Admit Inpatient rehab admission?: Yes - Initial Determination Are CD services needed?: Yes Free of communicable disease: Yes Not in need of hospitalization: Yes - Rehab Admission Criteria Previous failed treatment: Yes Poor recovery environment: Yes Comorbidities: Yes Lacks judgement: Yes Patient is meeting Inpatient Rehab admission criteria:: Yes (patient also referred by parole)
[2019-04-18 11:24] VITALS: BMI 32.1
[2019-04-18] MEDS ORDERED: LOPERAMIDE HCL 2 MG CAPSULE PO PRN (11:25)
[2019-04-18] MEDS ORDERED: MAGNESIUM CITRATE 300 ML BOTTLE PO PRN (11:25)
[2019-04-18] MEDS ORDERED: MAGNESIUM HYDROX 2400MG/30ML ORAL SUSPENSION 30 ML CUP PO PRN (11:25)
[2019-04-18] MEDS ORDERED: guaiFENesin 200 MG/10 ML 10 ML UNIT-DOSE CUPS PO PRN (11:25)
[2019-04-18] MEDS ORDERED: MAG HYDROX/AL HYDROX/SIMETH 30 ML UNIT-DOSE CUP PO PRN (11:25)
[2019-04-18] MEDS ORDERED: NICOTINE POLACRILEX 4 MG GUM BUC PRN (11:25)
[2019-04-18] MEDS ORDERED: P-EPHED 60MG/TRIPROLIDI 2.5MG TABLET PO PRN (11:25)
[2019-04-18] MEDS ORDERED: MENTHOL/PHENOL 1 EACH UD MM PRN (11:25)
[2019-04-18] MEDS ORDERED: ALBUTEROL SO4 8 GM HFA INHALER IH PRN (11:27)
[2019-04-18] MEDS ORDERED: PATIENT'S OWN MEDICATION (NON-FORMULARY) (Ammonium Lactate Cream 1 APPLIC) TP SCH (11:30)
[2019-04-18 14:07] LABS: HEMATOCRIT 37.4 % (35.4-49); HEMOGLOBIN 12.2 GM/dL (11.7-16.9); MCH 31.2 pg (25.7-33.7); MCHC 32.7 g/dl (32.0-35.9); MEAN CELL VOLUME 95.4 fl (80-96); MEAN PLT VOLUME 8.4 fl (7.5-11.1); PLATELET COUNT 160 K/MM3 (134-434); RBC 3.92 M/mm3 (4.00-5.60); RDW 13.6 % (11.9-15.9); WHITE BLOOD COUNT 6.2 K/mm3 (4.0-10.0)
[2019-04-18 14:17] LABS: ALBUMIN 3.5 g/dl (3.4-5.0); BILIRUBIN,TOTAL 0.5 mg/dL (0.2-1); BLOOD UREA NITROGEN 13.5 mg/dL (7-18); CALCIUM 8.6 mg/dL (8.5-10.1); CREATININE 1.1 mg/dL (0.55-1.3); POTASSIUM 3.8 mmol/L (3.5-5.1); TOT PROT 6.1 g/dl (6.4-8.2)
[2019-04-18] MEDS: ACYCLOVIR 400 MG TABLET PO SCH (15:26)
[2019-04-18] MEDS: amLODIPine BESYLATE 5 MG TABLET (FP) PO SCH (15:27)
[2019-04-18] MEDS: THIAMINE HCL 100 MG TABLET (FP) PO SCH (21:37)
[2019-04-18] MEDS: PATIENT'S OWN MEDICATION (NON-FORMULARY) (Gabapentin [Gabapentin] 600 MG) PO SCH (21:37)
[2019-04-18] MEDS: RANITIDINE HCL 150 MG TABLET (FP) PO SCH (21:37)
[2019-04-18] MEDS: MELATONIN 5 MG TABLETS PO PRN (21:38)
[2019-04-18] MEDS: AMMONIUM LACTATE 12% LOTION 225 GM BOTTLE TP SCH (21:39)
[2019-04-19] MEDS: ACETAMINOPHEN 325 MG TABLET (FP) PO PRN (06:35)
[2019-04-19] MEDS ORDERED: LANSOPRAZOLE 15 MG PO SCH (10:00)
[2019-04-19] MEDS ORDERED: PATIENT'S OWN MEDICATION (NON-FORMULARY) (Ipratropium/Albuterol Sulfate [Combivent Respima IH PRN (10:00)
[2019-04-19] MEDS ORDERED: PATIENT'S OWN MEDICATION (NON-FORMULARY) (Multivitamin 1 TAB) PO SCH (10:00)
[2019-04-19] MEDS ORDERED: DICLOFENAC SODIUM TP PRN (10:00)
[2019-04-19] MEDS: RANITIDINE HCL 150 MG TABLET (FP) PO SCH ×2 (10:17→21:33)
[2019-04-19] MEDS: PATIENT'S OWN MEDICATION (NON-FORMULARY) (Gabapentin [Gabapentin] 600 MG) PO SCH ×2 (10:17→21:33)
[2019-04-19] MEDS: BISACODYL 5 MG TABLET.DR (FP) PO PRN (10:18)
[2019-04-19] MEDS: FOLIC ACID 1 MG TABLET (FP) PO SCH (10:18)
[2019-04-19] MEDS: ASPIRIN COATED 81 MG TABLET.EC PO SCH (10:18)
[2019-04-19] MEDS: ACYCLOVIR 400 MG TABLET PO SCH (10:18)
[2019-04-19] MEDS: amLODIPine BESYLATE 5 MG TABLET (FP) PO SCH (10:18)
[2019-04-19] MEDS: HYDROCHLOROTHIAZIDE 12.5 MG CAPSULE (FP) PO SCH (10:18)
[2019-04-19] MEDS: PRENATAL VITAMINS W/ FOLIC ACID TABLET (FP) PO SCH (10:18)
[2019-04-19] MEDS: CARVEDILOL 12.5 MG TABLET (FP) PO SCH ×2 (10:19→21:33)
[2019-04-19] MEDS: ENTECAVIR 0.5 MG TABLET PO SCH (10:19)
[2019-04-19] MEDS: AMMONIUM LACTATE 12% LOTION 225 GM BOTTLE TP SCH ×2 (10:20→22:27)
[2019-04-19] MEDS: IBUPROFEN 400 MG TABLET (FP) PO PRN ×2 (10:21→21:36)
--- NOTE | 2019-04-19 12:04 | PN ---
[facility] Progress Note (SOAP) Subjective: Pt admitted to rehab on 04/18/19 for cocaine dependence. Pt reports he has pain and swelling to left breats and was worse last night. Pt states he bumped his left chest against a protruded wall corner on a hallway at home on thursday. reports it was irritated but was not as painful as today. Pt reports he has a primary care doctor, Dr. Rivera Morelos at [facility], [address] [place] [address]. ext [phone]. . pt reports he was referred by dr. Morelos to follow up with evaluation for cataract surgery which is still pending. Objective: 04/19/19 12:18 Vital Signs - 24 hr 04/18/19 04/19/19 04/19/19 12:44 00:30 03:30 Temperature 97.6 F Pulse Rate 66 Respiratory 16 18 18 Rate Blood Pressure 103/68 04/19/19 06:30 Temperature 98.2 F Pulse Rate 72 Respiratory 20 Rate Blood Pressure 156/92 Laboratory Tests 04/18/19 04/18/19 04/18/19 11:50 11:50 11:50 WBC 6.2 RBC 3.92 L Hgb 12.2 Hct 37.4 D MCV 95.4 MCH 31.2 MCHC 32.7 RDW 13.6 Plt Count 160 D MPV 8.4 D Sodium 143 Potassium 3.8 Chloride 108 H Carbon Dioxide 30 Anion Gap 5 L BUN 13.5 Creatinine 1.1 Est GFR (CKD-EPI)AfAm 81.22 Est GFR (CKD-EPI)NonAf 70.07 Random Glucose 82 Calcium 8.6 Total Bilirubin 0.5 AST 11 L ALT 16 Alkaline Phosphatase 73 Total Protein 6.1 L Albumin 3.5 RPR Titer Nonreactive P/E: Chest:mid chest with old surgical scar Left breast swelling with slight redness to skin around areola. pain on palpation. Right side WNL. Assessment: 04/19/19 12:19 A/P:Pain Left Breast r/o [place] Cellulitis, left breast. Plan: Cold compress, apply tid Motrin or tylenol prn for pain. Re-evaluate pt if sx persist.
[2019-04-19 15:57] LABS: URINE APPEARANCE CLEAR; URINE BILIRUBIN NEGATIVE (NEGATIVE); URINE COLOR YELLOW; URINE GLUCOSE (UA) NEGATIVE (NEGATIVE); URINE KETONE NEGATIVE (NEGATIVE); URINE LEUK ESTERASE TRACE (NEGATIVE); URINE NITRITE NEGATIVE (NEGATIVE); URINE PROTEIN NEGATIVE (NEGATIVE)
[2019-04-19] MEDS: MELATONIN 5 MG TABLETS PO PRN (21:34)
[2019-04-19] MEDS: THIAMINE HCL 100 MG TABLET (FP) PO SCH (21:34)
[2019-04-20] MEDS: PRENATAL VITAMINS W/ FOLIC ACID TABLET (FP) PO SCH (10:08)
[2019-04-20] MEDS: ASPIRIN COATED 81 MG TABLET.EC PO SCH (10:09)
[2019-04-20] MEDS: HYDROCHLOROTHIAZIDE 12.5 MG CAPSULE (FP) PO SCH (10:09)
[2019-04-20] MEDS: RANITIDINE HCL 150 MG TABLET (FP) PO SCH ×2 (10:09→21:32)
[2019-04-20] MEDS: amLODIPine BESYLATE 5 MG TABLET (FP) PO SCH (10:09)
[2019-04-20] MEDS: ACYCLOVIR 400 MG TABLET PO SCH (10:09)
[2019-04-20] MEDS: FOLIC ACID 1 MG TABLET (FP) PO SCH (10:09)
[2019-04-20] MEDS: CARVEDILOL 12.5 MG TABLET (FP) PO SCH ×2 (10:10→21:35)
[2019-04-20] MEDS: ENTECAVIR 0.5 MG TABLET PO SCH (10:10)
[2019-04-20] MEDS: PATIENT'S OWN MEDICATION (NON-FORMULARY) (Gabapentin [Gabapentin] 600 MG) PO SCH ×2 (10:10→21:34)
[2019-04-20] MEDS: AMMONIUM LACTATE 12% LOTION 225 GM BOTTLE TP SCH ×2 (10:11→21:32)
[2019-04-20] MEDS: IBUPROFEN 400 MG TABLET (FP) PO PRN ×2 (10:12→21:36)
--- NOTE | 2019-04-20 13:24 | PN ---
[facility] Progress Note Note: pt c/o pain/swelling not abated with motrin or cold compress. Vital Signs - 24 hr 04/20/19 04/20/19 04/20/19 00:30 03:30 06:30 Temperature 98 F Pulse Rate 76 Respiratory 18 18 20 Rate Blood Pressure 168/92 Laboratory Tests 04/18/19 04/18/19 04/18/19 11:50 11:50 11:50 WBC 6.2 RBC 3.92 L Hgb 12.2 Hct 37.4 D MCV 95.4 MCH 31.2 MCHC 32.7 RDW 13.6 Plt Count 160 D MPV 8.4 D Sodium 143 Potassium 3.8 Chloride 108 H Carbon Dioxide 30 Anion Gap 5 L BUN 13.5 Creatinine 1.1 Est GFR (CKD-EPI)AfAm 81.22 Est GFR (CKD-EPI)NonAf 70.07 Random Glucose 82 Calcium 8.6 Total Bilirubin 0.5 AST 11 L ALT 16 Alkaline Phosphatase 73 Total Protein 6.1 L Albumin 3.5 Urine Color Urine Appearance Urine pH Ur Specific [place] Urine Protein Urine Glucose (UA) Urine Ketones Urine Blood Urine Nitrite Urine Bilirubin Urine Urobilinogen Ur Leukocyte Esterase RPR Titer Nonreactive HIV 1&2 Antibody Screen HIV P24 Antigen 04/19/19 04/19/19 09:00 12:00 WBC RBC Hgb Hct MCV MCH MCHC RDW Plt Count MPV Sodium Potassium Chloride Carbon Dioxide Anion Gap BUN Creatinine Est GFR (CKD-EPI)AfAm Est GFR (CKD-EPI)NonAf Random Glucose Calcium Total Bilirubin AST ALT Alkaline Phosphatase Total Protein Albumin Urine Color Yellow Urine Appearance Clear Urine pH 8.0 D Ur Specific [place] 1.003 L Urine Protein Negative Urine Glucose (UA) Negative Urine Ketones Negative Urine Blood Negative Urine Nitrite Negative Urine Bilirubin Negative Urine Urobilinogen 1.0 Ur Leukocyte Esterase Trace RPR Titer HIV 1&2 Antibody Screen Cancelled HIV P24 Antigen Cancelled Exam: left breast swelling with redness and tenderness(to pt's touch) Two Bumps around areola appears white(pus color). A/P: Cellulitis r/o Abcess Start keflex 250 mg po q6h, first dose now. bacitracin ointment apply bid to affected area.
[2019-04-20] MEDS ORDERED: BACITRACIN 15 GM TUBE TOPICAL OINTMENT TP ONE (14:00)
[2019-04-20] MEDS ORDERED: CEPHALEXIN MONOHYDRATE 250 MG CAPSULE (FP) PO ONE (14:00)
[2019-04-20] MEDS: CEPHALEXIN MONOHYDRATE 250 MG CAPSULE (FP) PO SCH ×2 (18:20→23:52)
[2019-04-20] MEDS: THIAMINE HCL 100 MG TABLET (FP) PO SCH (21:32)
[2019-04-20] MEDS: BACITRACIN 15 GM TUBE TOPICAL OINTMENT TP SCH (21:33)
[2019-04-21] MEDS: CEPHALEXIN MONOHYDRATE 250 MG CAPSULE (FP) PO SCH ×4 (06:41→23:49)
[2019-04-21] MEDS: ACETAMINOPHEN 325 MG TABLET (FP) PO PRN ×2 (06:43→13:02)
[2019-04-21] MEDS ORDERED: IXAZOMIB CITRATE 4 MG PO ONE (10:00)
[2019-04-21] MEDS ORDERED: DEXAMETHASONE 4 MG TABLET (FP) PO ONE (10:00)
[2019-04-21] MEDS: FOLIC ACID 1 MG TABLET (FP) PO SCH (11:11)
[2019-04-21] MEDS: PRENATAL VITAMINS W/ FOLIC ACID TABLET (FP) PO SCH (11:11)
[2019-04-21] MEDS: ASPIRIN COATED 81 MG TABLET.EC PO SCH (11:11)
[2019-04-21] MEDS: amLODIPine BESYLATE 5 MG TABLET (FP) PO SCH (11:11)
[2019-04-21] MEDS: RANITIDINE HCL 150 MG TABLET (FP) PO SCH ×2 (11:11→21:23)
[2019-04-21] MEDS: AMMONIUM LACTATE 12% LOTION 225 GM BOTTLE TP SCH ×2 (11:12→21:24)
[2019-04-21] MEDS: BACITRACIN 15 GM TUBE TOPICAL OINTMENT TP SCH ×2 (11:17→21:24)
[2019-04-21] MEDS: CARVEDILOL 12.5 MG TABLET (FP) PO SCH ×2 (11:18→21:26)
[2019-04-21] MEDS: ENTECAVIR 0.5 MG TABLET PO SCH (11:18)
[2019-04-21] MEDS: ACYCLOVIR 400 MG TABLET PO SCH (11:22)
[2019-04-21] MEDS: BISACODYL 5 MG TABLET.DR (FP) PO PRN (11:23)
[2019-04-21] MEDS: HYDROCHLOROTHIAZIDE 12.5 MG CAPSULE (FP) PO SCH (11:34)
[2019-04-21] MEDS: PATIENT'S OWN MEDICATION (NON-FORMULARY) (Gabapentin [Gabapentin] 600 MG) PO SCH ×2 (11:36→21:23)
[2019-04-21] MEDS: THIAMINE HCL 100 MG TABLET (FP) PO SCH (21:23)
[2019-04-21] MEDS: MELATONIN 5 MG TABLETS PO PRN (21:26)
[2019-04-21] MEDS: IBUPROFEN 400 MG TABLET (FP) PO PRN (21:27)
[2019-04-22] MEDS: CEPHALEXIN MONOHYDRATE 250 MG CAPSULE (FP) PO SCH ×3 (06:47→17:08)
[2019-04-22] MEDS: PRENATAL VITAMINS W/ FOLIC ACID TABLET (FP) PO SCH (10:18)
[2019-04-22] MEDS: RANITIDINE HCL 150 MG TABLET (FP) PO SCH ×2 (10:20→21:24)
[2019-04-22] MEDS: amLODIPine BESYLATE 5 MG TABLET (FP) PO SCH (10:20)
[2019-04-22] MEDS: ACYCLOVIR 400 MG TABLET PO SCH (10:20)
[2019-04-22] MEDS: HYDROCHLOROTHIAZIDE 12.5 MG CAPSULE (FP) PO SCH (10:20)
[2019-04-22] MEDS: FOLIC ACID 1 MG TABLET (FP) PO SCH (10:20)
[2019-04-22] MEDS: BACITRACIN 15 GM TUBE TOPICAL OINTMENT TP SCH ×2 (10:21→21:26)
[2019-04-22] MEDS: CARVEDILOL 12.5 MG TABLET (FP) PO SCH ×2 (10:22→21:24)
[2019-04-22] MEDS: ENTECAVIR 0.5 MG TABLET PO SCH (10:22)
[2019-04-22] MEDS: AMMONIUM LACTATE 12% LOTION 225 GM BOTTLE TP SCH ×2 (10:23→21:34)
[2019-04-22] MEDS: PATIENT'S OWN MEDICATION (NON-FORMULARY) (Gabapentin [Gabapentin] 600 MG) PO SCH ×2 (10:23→21:24)
[2019-04-22] MEDS: ASPIRIN COATED 81 MG TABLET.EC PO SCH (10:24)
--- NOTE | 2019-04-22 12:16 | PN ---
[facility] Progress Note Note: Pt reports Left breast swelling,redness and pain improved. Vital Signs - 24 hr 04/21/19 04/22/19 04/22/19 22:00 00:30 03:30 Temperature 97.5 F L Pulse Rate 78 Respiratory 16 18 18 Rate Blood Pressure 145/70 04/22/19 04/22/19 07:15 10:31 Temperature 97.7 F Pulse Rate 78 79 Respiratory 18 18 Rate Blood Pressure 146/81 131/77 Limited Exam:Left breast swelling and redness decreased. Previous day Pus-filled follicle free of pus. A/P: Sx improved continue present therapy warm compress to area bid
[2019-04-22] MEDS: MELATONIN 5 MG TABLETS PO PRN (21:24)
[2019-04-22] MEDS: THIAMINE HCL 100 MG TABLET (FP) PO SCH (21:24)
[2019-04-22] MEDS: IBUPROFEN 400 MG TABLET (FP) PO PRN (21:25)
[2019-04-23] MEDS: CEPHALEXIN MONOHYDRATE 250 MG CAPSULE (FP) PO SCH ×4 (00:33→17:56)
[2019-04-23] MEDS: HYDROCHLOROTHIAZIDE 12.5 MG CAPSULE (FP) PO SCH (09:49)
[2019-04-23] MEDS: ASPIRIN COATED 81 MG TABLET.EC PO SCH (09:49)
[2019-04-23] MEDS: ACYCLOVIR 400 MG TABLET PO SCH (09:50)
[2019-04-23] MEDS: FOLIC ACID 1 MG TABLET (FP) PO SCH (09:50)
[2019-04-23] MEDS: amLODIPine BESYLATE 5 MG TABLET (FP) PO SCH (09:50)
[2019-04-23] MEDS: PRENATAL VITAMINS W/ FOLIC ACID TABLET (FP) PO SCH (09:50)
[2019-04-23] MEDS: RANITIDINE HCL 150 MG TABLET (FP) PO SCH ×2 (09:50→21:45)
[2019-04-23] MEDS: BACITRACIN 15 GM TUBE TOPICAL OINTMENT TP SCH ×2 (10:00→21:46)
[2019-04-23] MEDS: CARVEDILOL 12.5 MG TABLET (FP) PO SCH ×2 (10:00→21:45)
[2019-04-23] MEDS: PATIENT'S OWN MEDICATION (NON-FORMULARY) (Gabapentin [Gabapentin] 600 MG) PO SCH ×2 (10:30→21:46)
[2019-04-23] MEDS: ENTECAVIR 0.5 MG TABLET PO SCH (10:32)
[2019-04-23] MEDS: AMMONIUM LACTATE 12% LOTION 225 GM BOTTLE TP SCH ×2 (11:21→22:30)
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
[2019-04-23] MEDS: AMITRIPTYLINE HCL 100 MG TABLET PO SCH (21:45)
[2019-04-23] MEDS: THIAMINE HCL 100 MG TABLET (FP) PO SCH (21:45)
[2019-04-23] MEDS: IBUPROFEN 400 MG TABLET (FP) PO PRN (21:49)
[2019-04-24] MEDS: CEPHALEXIN MONOHYDRATE 250 MG CAPSULE (FP) PO SCH ×4 (00:01→18:03)
[2019-04-24] MEDS: amLODIPine BESYLATE 5 MG TABLET (FP) PO SCH (10:47)
[2019-04-24] MEDS: HYDROCHLOROTHIAZIDE 12.5 MG CAPSULE (FP) PO SCH (10:47)
[2019-04-24] MEDS: ACYCLOVIR 400 MG TABLET PO SCH (10:47)
[2019-04-24] MEDS: FOLIC ACID 1 MG TABLET (FP) PO SCH (10:47)
[2019-04-24] MEDS: RANITIDINE HCL 150 MG TABLET (FP) PO SCH ×2 (10:47→22:02)
[2019-04-24] MEDS: ENTECAVIR 0.5 MG TABLET PO SCH (10:48)
[2019-04-24] MEDS: CARVEDILOL 12.5 MG TABLET (FP) PO SCH ×2 (10:48→23:00)
[2019-04-24] MEDS: ASPIRIN COATED 81 MG TABLET.EC PO SCH (10:48)
[2019-04-24] MEDS: BACITRACIN 15 GM TUBE TOPICAL OINTMENT TP SCH ×2 (10:49→23:00)
[2019-04-24] MEDS: PATIENT'S OWN MEDICATION (NON-FORMULARY) (Gabapentin [Gabapentin] 600 MG) PO SCH ×2 (11:26→23:02)
[2019-04-24] MEDS: AMMONIUM LACTATE 12% LOTION 225 GM BOTTLE TP SCH ×2 (11:26→22:03)
[2019-04-24] MEDS: PRENATAL VITAMINS W/ FOLIC ACID TABLET (FP) PO SCH (11:26)
--- NOTE | 2019-04-24 11:35 | EKG ---
Test Reason : Blood Pressure : / mmHG Vent. Rate : 066 BPM Atrial Rate : 066 BPM P-R Int : 146 ms QRS Dur : 092 ms QT Int : 364 ms P-R-T Axes : -02 -10 005 degrees QTc Int : 381 ms NORMAL SINUS RHYTHM NONSPECIFIC T WAVE ABNORMALITY ABNORMAL ECG NO PREVIOUS ECGS AVAILABLE Confirmed by ALBARO CLEARY, KENNY ([id number]) on 04/24/2019 11:35:29 AM Referred By: TISHA HIGHTOWER Confirmed By:KENNY IRVIN MD
[2019-04-24] MEDS: THIAMINE HCL 100 MG TABLET (FP) PO SCH (22:02)
[2019-04-24] MEDS: MELATONIN 5 MG TABLETS PO PRN (22:04)
[2019-04-24] MEDS: AMITRIPTYLINE HCL 100 MG TABLET PO SCH (23:00)
[2019-04-25] MEDS: CEPHALEXIN MONOHYDRATE 250 MG CAPSULE (FP) PO SCH ×5 (00:15→23:59)
[2019-04-25] MEDS: FOLIC ACID 1 MG TABLET (FP) PO SCH (10:07)
[2019-04-25] MEDS: amLODIPine BESYLATE 5 MG TABLET (FP) PO SCH (10:07)
[2019-04-25] MEDS: HYDROCHLOROTHIAZIDE 12.5 MG CAPSULE (FP) PO SCH (10:07)
[2019-04-25] MEDS: ASPIRIN COATED 81 MG TABLET.EC PO SCH (10:07)
[2019-04-25] MEDS: ACYCLOVIR 400 MG TABLET PO SCH (10:07)
[2019-04-25] MEDS: RANITIDINE HCL 150 MG TABLET (FP) PO SCH ×2 (10:07→21:37)
[2019-04-25] MEDS: PRENATAL VITAMINS W/ FOLIC ACID TABLET (FP) PO SCH (10:07)
[2019-04-25] MEDS: AMMONIUM LACTATE 12% LOTION 225 GM BOTTLE TP SCH ×2 (10:10→21:38)
[2019-04-25] MEDS: PATIENT'S OWN MEDICATION (NON-FORMULARY) (Gabapentin [Gabapentin] 600 MG) PO SCH ×2 (10:10→21:37)
[2019-04-25] MEDS: CARVEDILOL 12.5 MG TABLET (FP) PO SCH ×2 (10:10→21:38)
[2019-04-25] MEDS: BACITRACIN 15 GM TUBE TOPICAL OINTMENT TP SCH ×2 (10:10→21:38)
[2019-04-25] MEDS: ENTECAVIR 0.5 MG TABLET PO SCH (10:11)
[2019-04-25] MEDS: THIAMINE HCL 100 MG TABLET (FP) PO SCH (21:37)
[2019-04-25] MEDS: AMITRIPTYLINE HCL 100 MG TABLET PO SCH (22:12)
[2019-04-26] MEDS: CEPHALEXIN MONOHYDRATE 250 MG CAPSULE (FP) PO SCH ×4 (06:26→23:46)
[2019-04-26] MEDS: FOLIC ACID 1 MG TABLET (FP) PO SCH (10:29)
[2019-04-26] MEDS: RANITIDINE HCL 150 MG TABLET (FP) PO SCH ×2 (10:29→21:29)
[2019-04-26] MEDS: BACITRACIN 15 GM TUBE TOPICAL OINTMENT TP SCH ×2 (10:29→21:30)
[2019-04-26] MEDS: amLODIPine BESYLATE 5 MG TABLET (FP) PO SCH (10:29)
[2019-04-26] MEDS: ASPIRIN COATED 81 MG TABLET.EC PO SCH (10:29)
[2019-04-26] MEDS: PRENATAL VITAMINS W/ FOLIC ACID TABLET (FP) PO SCH (10:29)
[2019-04-26] MEDS: HYDROCHLOROTHIAZIDE 12.5 MG CAPSULE (FP) PO SCH (10:29)
[2019-04-26] MEDS: ENTECAVIR 0.5 MG TABLET PO SCH (10:30)
[2019-04-26] MEDS: CARVEDILOL 12.5 MG TABLET (FP) PO SCH ×2 (10:31→21:29)
[2019-04-26] MEDS: PATIENT'S OWN MEDICATION (NON-FORMULARY) (Gabapentin [Gabapentin] 600 MG) PO SCH ×2 (10:31→21:28)
[2019-04-26] MEDS: AMMONIUM LACTATE 12% LOTION 225 GM BOTTLE TP SCH ×2 (10:32→21:30)
[2019-04-26] MEDS: THIAMINE HCL 100 MG TABLET (FP) PO SCH (21:29)
[2019-04-26] MEDS: AMITRIPTYLINE HCL 100 MG TABLET PO SCH (21:29)
[2019-04-27] MEDS: CEPHALEXIN MONOHYDRATE 250 MG CAPSULE (FP) PO SCH ×2 (06:40→11:58)
[2019-04-27] MEDS: PRENATAL VITAMINS W/ FOLIC ACID TABLET (FP) PO SCH (10:11)
[2019-04-27] MEDS: AMMONIUM LACTATE 12% LOTION 225 GM BOTTLE TP SCH ×2 (10:11→22:16)
[2019-04-27] MEDS: HYDROCHLOROTHIAZIDE 12.5 MG CAPSULE (FP) PO SCH (10:11)
[2019-04-27] MEDS: ASPIRIN COATED 81 MG TABLET.EC PO SCH (10:11)
[2019-04-27] MEDS: BACITRACIN 15 GM TUBE TOPICAL OINTMENT TP SCH ×2 (10:11→22:15)
[2019-04-27] MEDS: RANITIDINE HCL 150 MG TABLET (FP) PO SCH ×2 (10:11→21:29)
[2019-04-27] MEDS: CARVEDILOL 12.5 MG TABLET (FP) PO SCH ×2 (10:11→21:29)
[2019-04-27] MEDS: FOLIC ACID 1 MG TABLET (FP) PO SCH (10:11)
[2019-04-27] MEDS: amLODIPine BESYLATE 5 MG TABLET (FP) PO SCH (10:11)
[2019-04-27] MEDS: PATIENT'S OWN MEDICATION (NON-FORMULARY) (Gabapentin [Gabapentin] 600 MG) PO SCH ×2 (10:12→22:17)
[2019-04-27] MEDS: ENTECAVIR 0.5 MG TABLET PO SCH (10:13)
[2019-04-27] MEDS: THIAMINE HCL 100 MG TABLET (FP) PO SCH (21:29)
[2019-04-27] MEDS: AMITRIPTYLINE HCL 100 MG TABLET PO SCH (21:29)
[2019-04-27] MEDS: IBUPROFEN 400 MG TABLET (FP) PO PRN (21:30)
[2019-04-28] MEDS: ENTECAVIR 0.5 MG TABLET PO SCH (10:19)
[2019-04-28] MEDS: BACITRACIN 15 GM TUBE TOPICAL OINTMENT TP SCH ×2 (10:19→21:26)
[2019-04-28] MEDS: amLODIPine BESYLATE 5 MG TABLET (FP) PO SCH (10:21)
[2019-04-28] MEDS: PRENATAL VITAMINS W/ FOLIC ACID TABLET (FP) PO SCH (10:21)
[2019-04-28] MEDS: ASPIRIN COATED 81 MG TABLET.EC PO SCH (10:21)
[2019-04-28] MEDS: RANITIDINE HCL 150 MG TABLET (FP) PO SCH ×2 (10:22→21:25)
[2019-04-28] MEDS: CARVEDILOL 12.5 MG TABLET (FP) PO SCH ×2 (10:22→21:25)
[2019-04-28] MEDS: AMMONIUM LACTATE 12% LOTION 225 GM BOTTLE TP SCH ×2 (10:22→21:26)
[2019-04-28] MEDS: HYDROCHLOROTHIAZIDE 12.5 MG CAPSULE (FP) PO SCH (10:24)
[2019-04-28] MEDS: PATIENT'S OWN MEDICATION (NON-FORMULARY) (Gabapentin [Gabapentin] 600 MG) PO SCH ×2 (10:27→21:25)
[2019-04-28] MEDS: FOLIC ACID 1 MG TABLET (FP) PO SCH (10:28)
[2019-04-28] MEDS: AMITRIPTYLINE HCL 100 MG TABLET PO SCH (21:25)
[2019-04-28] MEDS: THIAMINE HCL 100 MG TABLET (FP) PO SCH (21:25)
[2019-04-29] MEDS: ENTECAVIR 0.5 MG TABLET PO SCH (10:17)
[2019-04-29] MEDS: BACITRACIN 15 GM TUBE TOPICAL OINTMENT TP SCH ×2 (10:18→23:14)
[2019-04-29] MEDS: CARVEDILOL 12.5 MG TABLET (FP) PO SCH ×2 (10:18→21:54)
[2019-04-29] MEDS: ASPIRIN COATED 81 MG TABLET.EC PO SCH (10:18)
[2019-04-29] MEDS: FOLIC ACID 1 MG TABLET (FP) PO SCH (10:18)
[2019-04-29] MEDS: HYDROCHLOROTHIAZIDE 12.5 MG CAPSULE (FP) PO SCH (10:19)
[2019-04-29] MEDS: PATIENT'S OWN MEDICATION (NON-FORMULARY) (Gabapentin [Gabapentin] 600 MG) PO SCH ×2 (10:19→23:14)
[2019-04-29] MEDS: RANITIDINE HCL 150 MG TABLET (FP) PO SCH ×2 (10:20→21:54)
[2019-04-29] MEDS: PRENATAL VITAMINS W/ FOLIC ACID TABLET (FP) PO SCH (10:20)
[2019-04-29] MEDS: amLODIPine BESYLATE 5 MG TABLET (FP) PO SCH (10:20)
[2019-04-29] MEDS: AMMONIUM LACTATE 12% LOTION 225 GM BOTTLE TP SCH ×2 (10:20→23:14)
[2019-04-29] MEDS: AMITRIPTYLINE HCL 100 MG TABLET PO SCH (21:54)
[2019-04-29] MEDS: THIAMINE HCL 100 MG TABLET (FP) PO SCH (21:54)
[2019-04-30] MEDS: ASPIRIN COATED 81 MG TABLET.EC PO SCH (09:59)
[2019-04-30] MEDS: RANITIDINE HCL 150 MG TABLET (FP) PO SCH ×2 (09:59→23:00)
[2019-04-30] MEDS: BACITRACIN 15 GM TUBE TOPICAL OINTMENT TP SCH ×2 (09:59→22:53)
[2019-04-30] MEDS: PRENATAL VITAMINS W/ FOLIC ACID TABLET (FP) PO SCH (09:59)
[2019-04-30] MEDS: HYDROCHLOROTHIAZIDE 12.5 MG CAPSULE (FP) PO SCH (09:59)
[2019-04-30] MEDS: CARVEDILOL 12.5 MG TABLET (FP) PO SCH ×2 (09:59→22:54)
[2019-04-30] MEDS: ENTECAVIR 0.5 MG TABLET PO SCH (09:59)
[2019-04-30] MEDS: FOLIC ACID 1 MG TABLET (FP) PO SCH (10:00)
[2019-04-30] MEDS: AMMONIUM LACTATE 12% LOTION 225 GM BOTTLE TP SCH ×2 (10:00→22:56)
[2019-04-30] MEDS: PATIENT'S OWN MEDICATION (NON-FORMULARY) (Gabapentin [Gabapentin] 600 MG) PO SCH ×2 (10:00→22:56)
[2019-04-30] MEDS: amLODIPine BESYLATE 5 MG TABLET (FP) PO SCH (10:00)
[2019-04-30] MEDS: AMITRIPTYLINE HCL 100 MG TABLET PO SCH (22:54)
[2019-04-30] MEDS: THIAMINE HCL 100 MG TABLET (FP) PO SCH (22:57)
[2019-04-30] MEDS: MELATONIN 5 MG TABLETS PO PRN (22:59)
[2019-05-01] MEDS: AMMONIUM LACTATE 12% LOTION 225 GM BOTTLE TP SCH ×2 (09:55→21:22)
[2019-05-01] MEDS: RANITIDINE HCL 150 MG TABLET (FP) PO SCH ×2 (09:55→21:23)
[2019-05-01] MEDS: FOLIC ACID 1 MG TABLET (FP) PO SCH (09:55)
[2019-05-01] MEDS: CARVEDILOL 12.5 MG TABLET (FP) PO SCH ×2 (09:55→21:22)
[2019-05-01] MEDS: HYDROCHLOROTHIAZIDE 12.5 MG CAPSULE (FP) PO SCH (09:55)
[2019-05-01] MEDS: ASPIRIN COATED 81 MG TABLET.EC PO SCH (09:55)
[2019-05-01] MEDS: amLODIPine BESYLATE 5 MG TABLET (FP) PO SCH (09:55)
[2019-05-01] MEDS: PRENATAL VITAMINS W/ FOLIC ACID TABLET (FP) PO SCH (09:55)
[2019-05-01] MEDS: BACITRACIN 15 GM TUBE TOPICAL OINTMENT TP SCH ×2 (09:56→21:22)
[2019-05-01] MEDS: ENTECAVIR 0.5 MG TABLET PO SCH (09:56)
[2019-05-01] MEDS: PATIENT'S OWN MEDICATION (NON-FORMULARY) (Gabapentin [Gabapentin] 600 MG) PO SCH ×2 (09:56→21:22)
[2019-05-01] MEDS: THIAMINE HCL 100 MG TABLET (FP) PO SCH (21:22)
[2019-05-01] MEDS: AMITRIPTYLINE HCL 100 MG TABLET PO SCH (21:22)
[2019-05-02 07:10] VITALS: BP 134/87; PULSE 98; TEMP 97.7
[2019-05-02] MEDS: RANITIDINE HCL 150 MG TABLET (FP) PO SCH (09:40)
[2019-05-02] MEDS: ASPIRIN COATED 81 MG TABLET.EC PO SCH (09:40)
[2019-05-02] MEDS: CARVEDILOL 12.5 MG TABLET (FP) PO SCH (09:40)
[2019-05-02] MEDS: FOLIC ACID 1 MG TABLET (FP) PO SCH (09:40)
[2019-05-02] MEDS: PATIENT'S OWN MEDICATION (NON-FORMULARY) (Gabapentin [Gabapentin] 600 MG) PO SCH (09:40)
[2019-05-02] MEDS: ENTECAVIR 0.5 MG TABLET PO SCH (09:40)
[2019-05-02] MEDS: amLODIPine BESYLATE 5 MG TABLET (FP) PO SCH (09:40)
[2019-05-02] MEDS: PRENATAL VITAMINS W/ FOLIC ACID TABLET (FP) PO SCH (09:40)
[2019-05-02] MEDS: HYDROCHLOROTHIAZIDE 12.5 MG CAPSULE (FP) PO SCH (09:40)
[2019-05-02] MEDS: AMMONIUM LACTATE 12% LOTION 225 GM BOTTLE TP SCH (09:41)
[2019-05-02] MEDS: BACITRACIN 15 GM TUBE TOPICAL OINTMENT TP SCH (09:41)
--- NOTE | 2019-05-02 12:12 | DS ---
[facility] Rehab Discharge Summary - [facility] Rehab Discharge Summary Admission Date: 04/18/19 Discharge Date: 05/02/19 - History Present History: Alcohol dependence, Cocaine dependence - Discharge Physical Exam Vital Signs: Vital Signs Temperature 97.7 F 05/02/19 07:09 Pulse Rate 98 H 05/02/19 07:09 Respiratory Rate 18 05/02/19 07:09 Blood Pressure 134/87 05/02/19 07:09 O2 Sat by Pulse Oximetry (%) Pertinent Admission Physical Exam Findings: Patient was able to complete rehab without any significant medical changes. Patient attended all group meetings and was able to accomplish all rehab goals. Patient discharged medically stable and denies SI/HI. Has all home medications in property. To follow up/make appointment with PCP this week to continue medical management of chronic conditions. - Treatment Discharge Condition: Outpatient referral accepted (Patient to follow up with [facility] for aftercare) - Medication Discharge Medications: Ambulatory Orders Acyclovir [Zovirax -] 400 mg PO DAILY 02/24/19 Albuterol Sulfate Inhaler - [Ventolin Hfa Inhaler -] 2 inh PO Q6H PRN 02/24/19 Amlodipine Besylate [Norvasc -] 5 mg PO DAILY 02/24/19 Ammonium Lactate Cream [Lac-Hydrin 12% *Cream*] 1 applic TP BID 02/24/19 Aspirin [Aspirin EC] 81 mg PO DAILY 02/24/19 Atorvastatin Ca [Lipitor] 10 mg PO HS 02/24/19 Bisacodyl 5 mg PO DAILY PRN 02/24/19 Carvedilol [Coreg -] 12.5 mg PO BID 02/24/19 Dexamethasone [Decadron -] 20 mg PO WEEKLY 02/24/19 Entecavir [Baraclude -] 0.5 mg PO DAILY 02/24/19 Folic Acid 1 mg PO DAILY 02/24/19 Gabapentin 600 mg PO DAILY 02/24/19 Hydrochlorothiazide 12.5 mg PO DAILY 02/24/19 Ipratropium/Albuterol Sulfate [Combivent Respimat Inhal [place]] 4 gm IH QID PRN 02/24/19 Ixazomib Citrate [Ninlaro] 4 mg PO WEEKLY 02/24/19 Lansoprazole [Prevacid] 15 mg PO DAILY 02/24/19 Risperidone [Risperdal] 2 mg PO HS 02/24/19 clonazePAM [Klonopin -] 0.5 mg PO DAILY PRN 02/24/19 Amitriptyline HCl [Elavil -] 100 mg PO HS #30 tablet 03/08/19 Furosemide 20 mg PO DAILY 04/18/19 Ranitidine [Zantac -] 150 mg PO BID #60 tablet 05/02/19 - Medication-Assisted Treatment (MAT) Medication-Assisted Treatment (MAT): No - Discharge Instructions Diet, activity, other medical instructions: Diet: Activity: Other medical instructions: - Follow-up Referral Minutes to complete discharge: 30 - AMA Did Patient Leave Against Medical Advice: No
[2019-05-05] MEDS ORDERED: IXAZOMIB CITRATE 4 MG PO SCH (10:00)
[2019-05-05] MEDS ORDERED: DEXAMETHASONE 4 MG TABLET (FP) PO SCH (10:00)
== END 2019-05-02 11:15 | disposition home or self-care (01) | DRG 895 ==
LOC: YASAS 08:52 → Y5N 12:26
PROVIDERS: ADMIT Neuromusculoskeletal Medicine & OMM; ATTEND Neuromusculoskeletal Medicine & OMM
PROC: HZ42ZZZ Group Counseling for Substance Abuse Treatment, Cognitive-Behavioral (ICD-10-PCS; principal; 2019-04-18)
DX: F10.20 Alcohol dependence, uncomplicated (principal); F14.20 Cocaine dependence, uncomplicated; C90.00 Multiple myeloma not having achieved remission; F17.210 Nicotine dependence, cigarettes, uncomplicated; F19.24 Other psychoactive substance dependence with psychoactive substance-induced mood disorder; F25.9 Schizoaffective disorder, unspecified; F31.9 Bipolar disorder, unspecified; I10 Essential (primary) hypertension; E78.00 Pure hypercholesterolemia, unspecified; J44.9 Chronic obstructive pulmonary disease, unspecified; N61.0 Mastitis without abscess; N61.1 Abscess of the breast and nipple
CPT/HCPCS: 36415; 80053; 81003; 85027; 86593; 87389; 93005; 93010